=== PATIENT | male | born 1990 | race Caucasian/White ===

== ENCOUNTER 2019-03-09 08:54 | Emergency (ER) | payer MEDICAID, OTHER ==
[~2019-03-09] VITALS: Ht 182.9 cm; Wt 76.9 kg
[~2019-03-09 08:54] MED LIST: ALBU6.7H9 INH; ALBU8HFA PO; BECL8.7A6 INH; FLO110IN INH; PRED10TA PO
[2019-03-09 09:02] VITALS: BP 110/72
[2019-03-09] MEDS ORDERED: PRED20TA PO (09:02)
[2019-03-09] MEDS ORDERED: ALBU8.5H8 IH (09:02)
[2019-03-09] MEDS ORDERED: ipratropium/albuterol 3ml nebule NEB ONE (09:05)
[2019-03-09] MEDS ORDERED: predniSONE 20 mg tablet PO ONE (09:05)
== END 2019-03-09 09:25 | disposition home or self-care (01) ==
LOC: ER 08:54
DX: J45.901 Unspecified asthma with (acute) exacerbation (principal); Z76.0 Encounter for issue of repeat prescription; F12.90 Cannabis use, unspecified, uncomplicated; Z59.0 Homelessness; Z56.0 Unemployment, unspecified; Z79.899 Other long term (current) drug therapy
CPT/HCPCS: 93005; 94640; 99283